=== PATIENT | male | born 1945 | race Caucasian/White ===

== ENCOUNTER 2024-08-18 08:13 | Outpatient (OUT) | payer MEDICARE, SELFPAY | END 2024-08-18 08:14 | disposition home or self-care (01) | LOC: CARD 08:14 | PROVIDERS: PCP Internal Medicine; Visit Provider Internal Medicine Cardiovascular Disease | DX: R94.31 Abnormal electrocardiogram [ECG] [EKG] (principal) | CPT/HCPCS: 93306 ==